=== PATIENT | female | born 1930 ===

== ENCOUNTER 2017-03-02 11:14 | Emergency (ER) | payer MEDICARE ==
[2017-03-02 11:16] VITALS: BMI 29.0
[2017-03-02 11:21] VITALS: RESP 20; O2SAT 95
--- NOTE | 2017-03-02 11:22 | C.PDOC ---
History Of Present Illness <Venkat Levy DO - Last Filed: 03/02/17 14:18> <Sung Carey - Last Filed: 03/02/17 18:39> 87 y/o female presents to the ED with complains of lower back pain and left knee pain since yesterday. Pt states she tripped and fell landing on her knee yesterday prior to pain onset. She denies head injury, LOC or any other complaints. (Venkat Levy DO) History Per: Patient History/Exam Limitations: no limitations Onset/Duration Of Symptoms: Hrs Current Symptoms Are (Timing): Still Present Quality Of Discomfort: "Pain" Severity: Moderate Previous Symptoms: None Recent travel outside of the [place]: No <Venkat Levy DO - Last Filed: 03/02/17 14:18> <AurelioSung Maryam - Last Filed: 03/02/17 18:39> Time Seen by Provider: 03/02/17 11:21 Chief Complaint (Nursing): Back Pain Past Medical History Reviewed: Historical Data, Nursing Documentation, Vital Signs Family History: States: Unknown Family Hx <Venkat Levy DO - Last Filed: 03/02/17 14:18> - Medical History PMH: Arthritis, Bronchitis, Diabetes, Diverticulitis, Gastritis, Hypercholesterolemia, Hyperlipidemia, Hypothyroidism, Osteoporosis, Pneumonia Denies: Asthma, Atrial Fibrillation, CHF, COPD, HIV, HTN, Chronic Kidney Disease, Seizures Surgical History: Cholecystectomy Denies: CABG, Pacemaker Family History: States: Unknown Family Hx, Diabetes, Hypertension Denies: CAD - Social History Hx Tobacco Use: Yes (OCC) Hx Alcohol Use: No Hx Substance Use: No - Immunization History Hx Tetanus Toxoid Vaccination: Yes Hx Influenza Vaccination: Yes Hx Pneumococcal Vaccination: Yes (2 years ago) <AurelioSung Maryam - Last Filed: 03/02/17 18:39> Vital Signs: Last Vital Signs Temp 97.6 F 03/02/17 12:51 Pulse 71 03/02/17 12:51 Resp 20 03/02/17 12:51 BP 192/75 H 03/02/17 12:51 Pulse Ox 95 03/02/17 12:51 - [facility] Procedures CLOSED ENDOSCOPIC BIOPSY OF LARGE INTESTINE (07/26/15) ESOPHAGOGASTRODUODENOSCOPY [EGD] W/CLOSED BIOPSY (07/26/15) Review Of Systems Except As Marked, All Systems Reviewed And Found Negative. Cardiovascular: Negative for: Chest Pain Respiratory: Negative for: Shortness of Breath Gastrointestinal: Negative for: Abdominal Pain Musculoskeletal: Positive for: Back Pain, Other (left knee pain) Neurological: Negative for: Weakness, Numbness <Venkat Levy DO - Last Filed: 03/02/17 14:18> Physical Exam - Physical Exam Appears: Non-toxic, No Acute Distress Skin: Warm, Dry Head: Atraumatic, Normacephalic Chest: Symmetrical Cardiovascular: Rhythm Regular Respiratory: Normal Breath Sounds, No Rales, No Rhonchi, No Wheezing Gastrointestinal/Abdominal: Soft, No Tenderness Back: No Vertebral Tenderness, Paraspinal Tenderness (diffuse lumbosacral tenderness) Extremity: Normal ROM, Tenderness (lateral aspect left knee), Capillary Refill ( <2 seconds), No Deformity, No Swelling Neurological/Psych: Oriented x3, Normal Motor, Normal Sensation <Venkat Levy DO - Last Filed: 03/02/17 14:18> ED Course And Treatment O2 Sat by Pulse Oximetry: 95 <Sung Carey - Last Filed: 03/02/17 18:39> Medical Decision Making <Venkat Levy DO - Last Filed: 03/02/17 14:18> <Sung Carey - Last Filed: 03/02/17 18:39> Medical Decision Making: Plan: XR left knee and lumbar spine (Venkat Levy DO) Disposition - Disposition Disposition Time: 12:40 <Venkat Levy DO - Last Filed: 03/02/17 14:18> <Sung Carey - Last Filed: 03/02/17 18:39> - Disposition Referrals: [facility], [Non-Staff] - Disposition: HOME/ ROUTINE Condition: GOOD Additional Instructions: Thank you for letting us take care of you today. Your provider was Dr. Levy. You were treated for knee and back pain. The emergency medical care you received today was directed at your acute symptoms. If you were prescribed any medication, please fill it and take as directed. It may take several days for your symptoms to resolve. Return to the Emergency Department if your symptoms worsen, do not improve, or if you have any other problems. Please contact your doctor or call one of the physicians/clinics you have been referred to that are listed on the Patient Visit Information form that is included in your discharge packet. Bring any paperwork you were given at discharge with you along with any medications you are taking to your follow up visit. Our treatment cannot replace ongoing medical care by a primary care provider (PCP) outside of the emergency department. Thank you for allowing the [facility] team to be part of your care today. Follow up with your doctor in 3-4 days for re-evaluation. Prescriptions: Cyclobenzaprine [Cyclobenzaprine HCl] 5 mg PO Q8 PRN #15 tab PRN Reason: Muscle Spasm Instructions: Acute Low Back Pain (ED), Knee Pain (ED) Forms: Gen Discharge Inst Vincentian Print Language: JAPANESE - Clinical Impression Clinical Impression: Low back pain, Knee pain - Scribe Statement The provider has reviewed the documentation as recorded by the Scribe <Venkat Levy DO - Last Filed: 03/02/17 14:18> <Sung Carey - Last Filed: 03/02/17 18:39> - Scribe Statement Tesfaye Jimenez (Venkat Levy DO) Provider Attestation: All medical record entries made by the Scribe were at my direction and personally dictated by me. I have reviewed the chart and agree that the record accurately reflects my personal performance of the history, physical exam, medical decision making, and the department course for this patient. I have also personally directed, reviewed, and agree with the discharge instructions and disposition. (Venkat Levy DO) Addendum <Sung Carey - Last Filed: 03/02/17 18:39> Addendum: 03/02/17 18:37 I did not see or treat this pt Due to [facility] design I am unable to remove my name from this charg and information documented under my name should be disregarded (Sung Carey)
--- NOTE | 2017-03-02 12:32 | RAD ---
PROCEDURE: Left Knee Radiographs. HISTORY: Pain. COMPARISON: None. FINDINGS: BONES: No evidence of acute fracture. JOINTS: Moderate osteoarthritic changes. JOINT EFFUSION: None. OTHER FINDINGS: None. IMPRESSION: No evidence of acute fracture or dislocation. Moderate osteoarthritic changes.
--- NOTE | 2017-03-02 12:36 | RAD ---
PROCEDURE: Radiographs of the Lumbar Spine. HISTORY: r/o fx COMPARISON: No prior. FINDINGS: BONES: No definite evidence of acute fracture. DISC SPACES: Moderate to severe degenerative disc changes. Move mild grade 1 anterior spondylolisthesis of L4 relative to L5. OTHER FINDINGS: None. IMPRESSION: Diffuse osteopenia. Moderate to severe degenerative changes. No definite evidence of acute fracture. Grade 1 anterior spondylolisthesis of L4 relative to L5.
[2017-03-02 12:52] VITALS: BP 192/75; PULSE 71; TEMP 97.6
== END 2017-03-02 12:52 | disposition home or self-care (01) ==
LOC: C.ER 11:14
DX: M54.5 Low back pain (principal); M25.562 Pain in left knee

== ENCOUNTER 2018-07-03 11:44 | Emergency (ER) | payer MEDICARE ==
[2018-07-03 11:52] VITALS: BMI 31.2
[2018-07-03 14:10] LABS: SQUAMOUS EPITHIAL 5 /hpf (0-5); URINE BACTERIA RARE (<OCC); URINE BILIRUBIN 1+ (NEGATIVE); URINE BLOOD NEGATIVE (NEGATIVE); URINE CLARITY Hazy (Clear); URINE COLOR Amber (YELLOW); URINE GLUCOSE (UA) NORMAL (Normal); URINE HYALINE CAST >20 /lpf (0-2); URINE LEUKOCYTE ESTERASE 2+ Leu/uL (Negative); URINE PROTEIN 1+ mg/dL (NEGATIVE)
--- NOTE | 2018-07-03 14:33 | C.PDOC ---
History Of Present Illness 88yo female, comes to ER stating she is feeling woozy/groggy after taking Zanaflex. Patient states the medication is not her's and was prescribed to her daughter. She reports taking the medication as she has bilateral flank pain for weeks. She denies taking any other medications but states she has been using home remedies with no relief. Patient states the pain is now resolved. At present, she denies any headache, fever, chills, nausea, vomiting or abdominal pain. Time Seen by Provider: 07/03/18 12:34 Chief Complaint (Nursing): Weakness/Neurological Deficit History Per: Patient History/Exam Limitations: no limitations Onset/Duration Of Symptoms: Persistent Current Symptoms Are (Timing): Still Present Additional History Per: Patient Past Medical History Reviewed: Historical Data, Nursing Documentation, Vital Signs Vital Signs: Last Vital Signs Temp 98.8 F 07/03/18 14:47 Pulse 63 07/03/18 14:47 Resp 16 07/03/18 14:47 BP 126/61 07/03/18 14:47 Pulse Ox 95 07/03/18 14:47 - Medical History PMH: Arthritis, Bronchitis, Diabetes, Diverticulitis, Gastritis, Hypercholesterolemia, Hyperlipidemia, Hypothyroidism, Osteoporosis, Pneumonia Denies: Asthma, Atrial Fibrillation, CHF, COPD, HIV, HTN, Chronic Kidney Disease, Seizures Surgical History: Cholecystectomy Denies: CABG, Pacemaker - [facility] Procedures CLOSED ENDOSCOPIC BIOPSY OF LARGE INTESTINE (07/26/15) ESOPHAGOGASTRODUODENOSCOPY [EGD] W/CLOSED BIOPSY (07/26/15) Family History: States: Unknown Family Hx, Diabetes, Hypertension Denies: CAD - Social History Hx Tobacco Use: Yes (OCC) Hx Alcohol Use: No Hx Substance Use: No - Immunization History Hx Tetanus Toxoid Vaccination: No Hx Influenza Vaccination: No Hx Pneumococcal Vaccination: No Review Of Systems Except As Marked, All Systems Reviewed And Found Negative. Constitutional: Negative for: Fever, Chills Cardiovascular: Negative for: Chest Pain Respiratory: Negative for: Shortness of Breath Gastrointestinal: Positive for: Other (bilateral flank pain). Negative for: Nausea, Vomiting, Abdominal Pain Neurological: Negative for: Weakness, Numbness Physical Exam - Physical Exam Appears: Non-toxic, No Acute Distress, Other (obese) Skin: Normal Color, Warm, Dry Head: Atraumatic, Normacephalic Eye(s): bilateral: Normal Inspection, PERRL, EOMI Oral Mucosa: Moist Neck: Normal ROM, Supple Chest: Symmetrical, No Tenderness Cardiovascular: Rhythm Regular Respiratory: Normal Breath Sounds Gastrointestinal/Abdominal: Soft, No Tenderness, No Mass, No Guarding, No Rebound, Other (obese) Back: Normal Inspection Extremity: Normal ROM, No Deformity Neurological/Psych: Oriented x3, Normal Speech, Normal Cognition Gait: Steady ED Course And Treatment O2 Sat by Pulse Oximetry: 98 (RA) Pulse Ox Interpretation: Normal Medical Decision Making Medical Decision Making: Plan: -- Urinalysis 1431 UA reviewed, no concern for UTI or kidney stones. On reassessment, patient is resting comfortably, and is in no acute distress. She states her grogginess has resolved. Patient was instructed to follow up with physician/clinic in 1-2 days for further evaluation. Disposition Counseled Patient/Family Regarding: Studies Performed, Diagnosis, Need For Followup - Disposition Disposition: HOME/ ROUTINE Disposition Time: 14:31 Condition: STABLE Forms: Gen Discharge Inst Maori, [facility] (Maori) - Clinical Impression Clinical Impression: Dizziness - Scribe Statement The provider has reviewed the documentation as recorded by the James Mena Provider Attestation: All medical record entries made by the James were at my direction and personally dictated by me. I have reviewed the chart and agree that the record accurately reflects my personal performance of the history, physical exam, medical decision making, and the department course for this patient. I have also personally directed, reviewed, and agree with the discharge instructions and disposition.
[2018-07-03 14:49] VITALS: BP 126/61; PULSE 63; RESP 16; TEMP 98.8
[2018-07-03 15:12] VITALS: O2SAT 98
--- NOTE | 2018-07-04 20:53 | CARD ---
APPROVED REPORT Date of service: 07/03/2018 EKG Measurement Heart [id number] <Conclusion> Normal sinus rhythm with sinus arrhythmia Minimal voltage criteria for LVH, may be normal variant T wave abnormality, consider lateral ischemia Abnormal ECG
== END 2018-07-03 14:49 | disposition home or self-care (01) ==
LOC: C.ER 11:44
DX: R42 Dizziness and giddiness (principal)

== ENCOUNTER 2018-07-10 17:41 | Observation (INO) | payer MEDICARE ==
[2018-07-10 17:41] VITALS: BMI 31.2
--- NOTE | 2018-07-10 18:16 | C.PDOC ---
History Of Present Illness 88 y/o female presents to ED with c/o sob and chest tightness associated with cough since 12pm today. Patient reports x2 episode of vomiting and currently denies abdominal pain, fever, chills or any other complaints at this time. Time Seen by Provider: 07/10/18 18:02 Chief Complaint (Nursing): Shortness Of Breath History Per: Patient History/Exam Limitations: no limitations Onset/Duration Of Symptoms: Hrs Current Symptoms Are (Timing): Still Present Past Medical History Reviewed: Historical Data, Nursing Documentation, Vital Signs Vital Signs: Last Vital Signs Temp 98.7 F 07/10/18 17:50 Pulse 64 07/10/18 17:50 Resp 22 07/10/18 17:50 BP 146/65 07/10/18 17:50 Pulse Ox 94 L 07/10/18 18:38 - Medical History PMH: Arthritis, Bronchitis, Diabetes, Diverticulitis, Gastritis, Hypercholesterolemia, Hyperlipidemia, Hypothyroidism, Osteoporosis, Pneumonia Surgical History: Cholecystectomy - [facility] Procedures CLOSED ENDOSCOPIC BIOPSY OF LARGE INTESTINE (07/26/15) ESOPHAGOGASTRODUODENOSCOPY [EGD] W/CLOSED BIOPSY (07/26/15) Family History: States: Unknown Family Hx, Diabetes, Hypertension - Social History Hx Tobacco Use: Yes (OCC) Hx Alcohol Use: No Hx Substance Use: No - Immunization History Hx Tetanus Toxoid Vaccination: No Hx Influenza Vaccination: No Hx Pneumococcal Vaccination: No Review Of Systems Constitutional: Negative for: Fever, Chills Cardiovascular: Positive for: Chest Pain Respiratory: Positive for: Cough, Shortness of Breath Gastrointestinal: Positive for: Vomiting Skin: Negative for: Rash Physical Exam - Physical Exam Appears: Non-toxic, No Acute Distress Skin: Warm, Dry, No Rash Head: Atraumatic, Normacephalic Eye(s): bilateral: Normal Inspection Oral Mucosa: Moist Throat: Normal, No Erythema, No Exudate Neck: Normal ROM, Supple Cardiovascular: Rhythm Regular Respiratory: Normal Breath Sounds, No Rales, No Rhonchi, No Wheezing Gastrointestinal/Abdominal: Soft, No Tenderness, No Guarding, No Rebound Extremity: Normal ROM, No Pedal Edema, Capillary Refill (<2 seconds) Neurological/Psych: Oriented x3, Normal Speech, Normal Cognition ED Course And Treatment O2 Sat by Pulse Oximetry: 94 (RA) Medical Decision Making Medical Decision Making: Assessment: Chest pain case s/o to Dr. Ferreira at 1900 pending labs, reevaluation and disposition Disposition - Disposition Disposition Time: 19:00 Condition: FAIR Forms: [facility] (Bolivian) - Clinical Impression Clinical Impression: Chest pain - Scribe Statement The provider has reviewed the documentation as recorded by the Scribe Nemesio Mathews All medical record entries made by the Scribe were at my direction and personally dictated by me. I have reviewed the chart and agree that the record accurately reflects my personal performance of the history, physical exam, medical decision making, and the department course for this patient. I have also personally directed, reviewed, and agree with the discharge instructions and disposition. Physician Patient Turnover Patient Signed Over To: Odilia Ferreira Handoff Comments: pending labs, ekg, cxr, disposition
--- NOTE | 2018-07-10 18:58 | RAD ---
Date of service: 07/10/2018 PROCEDURE: CHEST RADIOGRAPH, 1 VIEW HISTORY: SOB COMPARISON: 11/29/2016 FINDINGS: LUNGS: Clear. PLEURA: No pneumothorax or pleural fluid seen. CARDIOVASCULAR: Normal. OSSEOUS STRUCTURES: No significant abnormalities. VISUALIZED UPPER ABDOMEN: Normal. OTHER FINDINGS: None. IMPRESSION: No active disease.
[2018-07-10 19:31] LABS: BASO % 0.7 % (0.0-2.0); EOS # 0.2 K/uL (0.0-0.7); EOS % 3.5 % (0.0-4.0); HEMOGLOBIN 12.3 g/dL (11.0-16.0); LYMPH % 29.8 % (20.0-40.0); MEAN CELL VOLUME 92.5 fL (81.0-99.0); MEAN CORPUSCULAR HGB CONC 34.6 g/dL (33.0-37.0); MEAN PLATELET VOLUME 7.3 fL (7.2-11.7); MONO # 0.8 K/uL (0.0-0.8); NEUT # 3.7 K/uL (1.8-7.0); NRBC % 0.1 % (0.0-2.0); RBC 3.84 Mil/uL (3.80-5.20); RED CELL DISTRIBUTION WIDTH 13.5 % (11.5-14.5); WHITE BLOOD COUNT 6.8 K/uL (4.8-10.8)
[2018-07-10 19:44] LABS: ALB/GLOB RATIO 1.5 (1.0-2.1); ALBUMIN 4.3 g/dL (3.5-5.0); ALT/SGPT 33 U/L (9-52); AST/SGOT 17 U/L (14-36); BLOOD UREA NITROGEN 19 mg/dL (7-17); CALCIUM 9.4 mg/dl (8.6-10.4); GFR AFRICAN-AMERICAN > 60; GFR NON-AFRICAN AMERICAN 59; LIPASE 102 U/L (23-300)
[2018-07-10 19:55] LABS: B-TYPE NATRIURETIC PEPTIDE 232 pg/mL (0-900)
[2018-07-10 20:10] LABS: URINE BACTERIA RARE (<OCC); URINE BILIRUBIN NEGATIVE (NEGATIVE); URINE BLOOD NEGATIVE (NEGATIVE); URINE CLARITY Clear (Clear); URINE COLOR Straw (YELLOW); URINE GLUCOSE (UA) NORMAL (Normal); URINE LEUKOCYTE ESTERASE NEG Leu/uL (Negative); URINE PROTEIN NEGATIVE (NEGATIVE); URINE UROBILINOGEN NORMAL mg/dL (0.2-1.0)
--- NOTE | 2018-07-11 01:49 | CP.PCM.HP ---
<Lisa MontesNick - Last Filed: 07/11/18 04:40> History of Present Illness - History of Present Illness History of Present Illness: HPI: Patient is an 88 year old female with a history of HTN, DM, Hypothyroidism , who presents to the ED with complaints of epigastric pain. Patient states she was having her breakfast (coffee and bread) this morning, when shortly after, she developed epigastric pain described as a burning sensation. She also noted a "bad taste"and vomited up "green liquid". Patient reports she has not had an episode like this in the past, but has noted similar milder symptoms at nighttime. Patient's daughter was at bedside and contributed to the history. Per the daughter, the patient called her today and told her she couldn't breath. The patient has had bronchitis and used an inhaler in the past. Patient denies having shortness of breath at this time, but admits to having a dry cough that started today. Per the daughter, the patient has had abdominal pain and back pain for two weeks. She was given tramadol by her PMD, but stopped taking it today as she feels like she might have an allergy (itchy skin). The patient currently denies chest pain, palpitations, dyspnea, nausea, vomiting, fevers, headaches, dysuria, hematuria, constipation, diarrhea, and dizziness. PMD: Dr. Chung PMHx: HTN, DM, hypothyroidism SurgHx: Cholecystectomy, hysterectomy, bilateral cataract surgery FamHx: Grandmother- Gallbladder cancer SocHx: social tobacco use; denies alcohol and drug use; daughter- Thais, Allergies: per the patient and daughter: "allergic to a pain medication" but does not know the name; possible allergy to tramadol? Medications: Patient and daughter do not know the names- brought a 7 day pill organizer with multiple medications. Patient's pharmacy: [facility] Present on Admission - Present on Admission Any Indicators Present on Admission: No Review of Systems - Constitutional Constitutional: absent: Chills, Fever, Headache, Weight Loss, Weakness - EENT Eyes: absent: Change in Vision Ears: absent: Dizziness - Cardiovascular Cardiovascular: Dyspnea. absent: Chest Pain, Irregular Heart Rhythm, Leg Edema , Lightheadedness, Palpitations, Rapid Heart Rate - Respiratory Respiratory: Cough. absent: Dyspnea, Hemoptysis - Gastrointestinal Gastrointestinal: Abdominal Pain (epigastric), Vomiting. absent: Constipation, Diarrhea, Hematemesis, Hematochezia, Loose Stools - Genitourinary Genitourinary: absent: Dysuria, Hematuria - Integumentary Integumentary: absent: Rash, Swelling - Neurological Neurological: absent: Dizziness, Headaches - Endocrine Endocrine: absent: Palpitations Past Patient History - Infectious Disease Hx of Infectious Diseases: None - Tetanus Immunizations Tetanus Immunization: Unknown - Past Medical History & Family History Past Medical History?: Yes - Past Social History Smoking Status: Heavy Smoker > 10 Cigarettes Daily - CARDIAC Hx Hypercholesterolemia: Yes - PULMONARY Hx Bronchitis: Yes Hx Pneumonia: Yes - NEUROLOGICAL Hx Seizures: No - HEENT Hx HEENT Problems: No - RENAL Hx Chronic Kidney Disease: No - ENDOCRINE/METABOLIC Hx Hypothyroidism: Yes - HEMATOLOGICAL/ONCOLOGICAL Hx Human Immunodeficiency Virus (HIV): No - INTEGUMENTARY Hx Dermatological Problems: No - MUSCULOSKELETAL/RHEUMATOLOGICAL Hx Arthritis: Yes Hx Osteoporosis: Yes - GASTROINTESTINAL Hx Diverticulitis: Yes Hx Gastritis: Yes - GENITOURINARY/GYNECOLOGICAL Hx Genitourinary Disorders: No - PSYCHIATRIC Hx Substance Use: No - SURGICAL HISTORY Hx Cholecystectomy: Yes - ANESTHESIA Hx Anesthesia: Yes Hx Anesthesia Reactions: No Hx Malignant Hyperthermia: No Meds Allergies/Adverse Reactions: Allergies Allergy/AdvReac Type Severity Reaction Status Date / Time alendronate sodium Allergy RASH Verified 07/10/18 17:49 [From Fosamax] sulindac Allergy RASH Verified 07/10/18 17:49 Physical Exam - Constitutional Appears: No Acute Distress - Head Exam Head Exam: ATRAUMATIC, NORMAL INSPECTION - Eye Exam Eye Exam: EOMI, Normal appearance, PERRL - ENT Exam ENT Exam: Mucous Membranes Moist - Respiratory Exam Respiratory Exam: Clear to Auscultation Bilateral, Wheezes (mild, diffuse), NORMAL BREATHING PATTERN. absent: Rales, Rhonchi, Respiratory Distress - Cardiovascular Exam Cardiovascular Exam: REGULAR RHYTHM, +S1, +S2 - GI/Abdominal Exam GI & Abdominal Exam: Normal Bowel Sounds, Soft, Tenderness (RUQ, eipgastric). absent: Distended, Firm, Guarding, Mass - Extremities Exam Extremities exam: Positive for: normal inspection, pedal pulses present. Negative for: pedal edema, tenderness - Back Exam Back exam: paraspinal tenderness (b/l lower lumbar). absent: CVA tenderness (L) , CVA tenderness (R) - Neurological Exam Neurological exam: Alert, CN II-XII Intact, Oriented x3 - Psychiatric Exam Psychiatric exam: Normal Affect, Normal Mood - Skin Skin Exam: Dry, Intact, Normal Color, Warm Results - Vital Signs Recent Vital Signs: Last Vital Signs Temp 97.8 F 07/11/18 01:32 Pulse 74 07/11/18 01:32 Resp 18 07/11/18 01:32 BP 140/59 L 07/11/18 01:32 Pulse Ox 95 07/11/18 01:32 - Labs Result Diagrams: 07/10/18 19:15 07/10/18 19:15 Labs: Laboratory Results - last 24 hr 07/10/18 07/10/18 07/10/18 19:15 19:15 20:01 WBC 6.8 RBC 3.84 Hgb 12.3 Hct 35.5 MCV 92.5 MCH 32.0 H MCHC 34.6 RDW 13.5 Plt Count 265 MPV 7.3 Neut % (Auto) 54.0 Lymph % (Auto) 29.8 [place] % (Auto) 12.0 H Eos % (Auto) 3.5 Baso % (Auto) 0.7 Neut # (Auto) 3.7 Lymph # (Auto) 2.0 [place] # (Auto) 0.8 Eos # (Auto) 0.2 Baso # (Auto) 0.0 Sodium 139 Potassium 4.3 Chloride 102 Carbon Dioxide 27 Anion Gap 15 BUN 19 H Creatinine 0.9 Est GFR ( Amer) > 60 Est GFR (Non-Af Amer) 59 Random Glucose 133 H Calcium 9.4 Magnesium 2.0 Total Bilirubin 0.4 AST 17 ALT 33 Alkaline Phosphatase 92 Troponin I < 0.0120 NT-Pro-B Natriuret Pep 232 Total Protein 7.2 Albumin 4.3 Globulin 2.9 Albumin/Globulin Ratio 1.5 Lipase 102 Urine Color Straw Urine Clarity Clear Urine pH 5.0 Ur Specific [place] 1.005 Urine Protein Negative Urine Glucose (UA) Normal Urine Ketones Negative Urine Blood Negative Urine Nitrate Negative Urine Bilirubin Negative Urine Urobilinogen Normal Ur Leukocyte Esterase Neg Urine WBC (Auto) 1 Urine Bacteria Rare Assessment & Plan - Assessment and Plan (Free Text) Assessment: Abdominal Pain - Epigastric pain likely secondary to GERD - Protonix 40mg PO daily - RUQ pain--> ordered Abdomen/Pelvis CT, Abdominal US - Chest/Abdomen/Pelvis CT: small esophageal hiatal hernia; scattered mediastinal lymph nodes; diverticulosis w/o evidence of diverticulitis - Abdominal US: f/u Cough - CXR: no active disease - Chest CT: bilateral atelectasis - Duonebs Q6h - Pulmicort 0.5mg Inh Q12h - Doxycycline 100mg IV Q12h - O2 via NC Hypertension - Continue home medication: Nifedipine 60mg PO daily DM - Accuchecks - Hypoglycemic protocol - ISS Hypothyroidism - Continue home medication: Levothyroxine 75mcg PO daily HLD - Continue home medication: Crestor 5mg PO HS Prophylaxis - DVT: Heparin 5000u SC Q12h, SCDs - GI: Protonix 40mg PO daily - Heart healthy, 2g Na, low carb diet - PT/OT <Olegario Ritchie P - Last Filed: 07/11/18 06:38> Results - Vital Signs Recent Vital Signs: Last Vital Signs Temp 97.8 F 07/11/18 03:03 Pulse 59 L 07/11/18 03:30 Resp 22 07/11/18 03:03 BP 140/59 L 07/11/18 03:03 Pulse Ox 96 07/11/18 04:00 - Labs Result Diagrams: 07/10/18 19:15 07/10/18 19:15 Labs: Laboratory Results - last 24 hr 07/10/18 07/10/18 07/10/18 19:15 19:15 20:01 WBC 6.8 RBC 3.84 Hgb 12.3 Hct 35.5 MCV 92.5 MCH 32.0 H MCHC 34.6 RDW 13.5 Plt Count 265 MPV 7.3 Neut % (Auto) 54.0 Lymph % (Auto) 29.8 [place] % (Auto) 12.0 H Eos % (Auto) 3.5 Baso % (Auto) 0.7 Neut # (Auto) 3.7 Lymph # (Auto) 2.0 [place] # (Auto) 0.8 Eos # (Auto) 0.2 Baso # (Auto) 0.0 Sodium 139 Potassium 4.3 Chloride 102 Carbon Dioxide 27 Anion Gap 15 BUN 19 H Creatinine 0.9 Est GFR ( Amer) > 60 Est GFR (Non-Af Amer) 59 Random Glucose 133 H Calcium 9.4 Magnesium 2.0 Total Bilirubin 0.4 AST 17 ALT 33 Alkaline Phosphatase 92 Troponin I < 0.0120 NT-Pro-B Natriuret Pep 232 Total Protein 7.2 Albumin 4.3 Globulin 2.9 Albumin/Globulin Ratio 1.5 Lipase 102 Urine Color Straw Urine Clarity Clear Urine pH 5.0 Ur Specific [place] 1.005 Urine Protein Negative Urine Glucose (UA) Normal Urine Ketones Negative Urine Blood Negative Urine Nitrate Negative Urine Bilirubin Negative Urine Urobilinogen Normal Ur Leukocyte Esterase Neg Urine WBC (Auto) 1 Urine Bacteria Rare Attending/Attestation - Attestation I have personally seen and examined this patient.: Yes I have fully participated in the care of the patient.: Yes I have reviewed all pertinent clinical information: Yes Notes (Text): 07/11/18 06:34 Assessment * Presentation with c/o cough, sob, post vomiting * Reactive airway disease suspected from gerd/aspiration * RUQ abd tenderness, patient is s/p cholecystectomy, lft's fine DD of gastritis , cbd stones * DM on oha, h/o htn Plan * USG liver/biliary * PRN neb, inhaled pulmicort * Home meds * Gi/DVT prophylaxis * See orders for detail.
[2018-07-11] MEDS: Albuterol-Ipratrop 3 mg / 0.5 (3 ml) UD INH SCH ×3 (02:15→13:13)
[2018-07-11] MEDS ORDERED: Levothyroxine 75 MCG TAB PO SCH (06:30)
--- NOTE | 2018-07-11 07:51 | CP.PCM.PN ---
Subjective - Date & Time of Evaluation Date of Evaluation: 07/11/18 Time of Evaluation: 07:51 - Subjective Subjective: Resident Progress Note for Hospitalist Service Patient examined at bedside. Objective - Vital Signs/Intake and Output Vital Signs (last 24 hours): Temp Pulse Resp BP Pulse Ox 97.8 F 59 L 22 140/59 L 96 07/11/18 03:03 07/11/18 03:30 07/11/18 03:03 07/11/18 03:03 07/11/18 04:00 - Medications Medications: Current Medications Albuterol/Ipratropium (Duoneb 3 Mg/0.5 Mg (3 Ml) Ud) 3 ml INH RQ6 [facility] Last Admin: 07/11/18 07:30 Dose: Not Given Allopurinol (Zyloprim) 300 mg PO DAILY [facility] Aspirin (Ecotrin) 81 mg PO DAILY [facility] Budesonide (Pulmicort Respules) 0.5 mg INH RQ12 [facility] Last Admin: 07/11/18 07:30 Dose: Not Given Heparin Sodium (Porcine) (Heparin) 5,000 units SC Q12 [facility] Home Med (Biotin [Biotin]) 1 cap PO DAILY [facility] Doxycycline Hyclate 100 mg/ (Sodium Chloride) 100 mls @ 100 mls/hr IVPB Q12H [facility] PRN Reason: Protocol Last Admin: 07/11/18 00:51 Dose: 100 mls/hr Insulin Human Regular (Novolin R) 0 unit SC ACHS [facility] PRN Reason: Protocol Levothyroxine Sodium (Synthroid) 75 mcg PO DAILY@0630 [facility] Last Admin: 07/11/18 07:00 Dose: 75 mcg Nifedipine (Procardia Xl) 60 mg PO DAILY [facility] Pantoprazole Sodium (Protonix Ec Tab) 40 mg PO DAILY [facility] Rosuvastatin Calcium (Crestor) 5 mg PO HS [facility] - Labs Labs: 07/10/18 19:15 07/10/18 19:15
[2018-07-11] MEDS ORDERED: Budesonide 0.5 mg/2 ml Inhal Susp UD INH SCH (08:00)
[2018-07-11 08:08] LABS: BASO % 0.7 % (0.0-2.0); EOS # 0.2 K/uL (0.0-0.7); EOS % 4.1 % (0.0-4.0); HEMOGLOBIN 12.4 g/dL (11.0-16.0); LYMPH # 1.4 K/uL (1.0-4.3); LYMPH % 23.6 % (20.0-40.0); MEAN CELL VOLUME 92.2 fL (81.0-99.0); MEAN CORPUSCULAR HEMOGLOBIN 31.5 pg (27.0-31.0); MEAN CORPUSCULAR HGB CONC 34.2 g/dL (33.0-37.0); MONO # 0.7 K/uL (0.0-0.8); MONO % 12.2 % (0.0-10.0); NEUT # 3.6 K/uL (1.8-7.0); NEUT % 59.4 % (50.0-75.0); RBC 3.92 Mil/uL (3.80-5.20); RED CELL DISTRIBUTION WIDTH 13.4 % (11.5-14.5); WHITE BLOOD COUNT 6.1 K/uL (4.8-10.8)
[2018-07-11 08:22] LABS: ALB/GLOB RATIO 1.5 (1.0-2.1); ALBUMIN 3.8 g/dL (3.5-5.0); ALT/SGPT 27 U/L (9-52); AST/SGOT 14 U/L (14-36); BLOOD UREA NITROGEN 16 mg/dL (7-17); CALCIUM 8.8 mg/dl (8.6-10.4); GFR AFRICAN-AMERICAN > 60; GFR NON-AFRICAN AMERICAN > 60
[2018-07-11] MEDS: (Novolin R) Insulin Human Regular 100 units/ml vial SC SCH ×3 (08:23→16:30)
--- NOTE | 2018-07-11 09:50 | US ---
Abdominal ultrasound History: Right upper quadrant abdominal pain. Comparison: None available. Technique: Real-time sonography was performed through the abdomen. Findings: Liver: 17.9 centimeters in length. Normal echogenicity. Heterogeneous to hypoechoic cystic lesion in the right lobe of the liver measuring 1.2 x 0.9 x 1.2 centimeters. Correlation with multiphasic CT or MR may be helpful for further evaluation if clinically indicated. Gallbladder: Prior cholecystectomy. Common bile duct measures 8 millimeters, within normal limits. Limited visualization of the pancreas. Spleen measures 8.5 centimeters in length, within normal limits. Visualized aorta and IVC are preserved. Small right pleural effusion noted. Right kidney: 9.6 x 4.4 x 3.9 centimeters. Increased echogenicity of the renal parenchymal cortex suggestive for medical renal disease. No calculi or hydronephrosis. Left kidney: 9.2 x 4.5 x 4.6 centimeters. Increased echogenicity of the renal parenchymal cortex suggestive for medical renal disease. No calculi or hydronephrosis. Impression: 1. Increased echogenicity of the bilateral renal parenchymal cortices suggestive for medical renal disease. Clinical correlation. 2. Heterogeneous 1.2 centimeter cystic lesion in the right lobe of the liver. Correlation with multiphasic CT or MR may be helpful for further evaluation if clinically indicated. 3. Small right pleural effusion. 4. Prior cholecystectomy. 5. Pancreas not well visualized.
[2018-07-11] MEDS ORDERED: Pantoprazole 40 mg EC Tab PO SCH (10:00)
[2018-07-11] MEDS ORDERED: NIFEdipine 60 mg ER Tab PO SCH (10:00)
[2018-07-11] MEDS ORDERED: BIOTIN PO SCH (10:00)
--- NOTE | 2018-07-11 10:49 | CT ---
Date of service: 07/10/2018 PROCEDURE: CT Chest, Abdomen and Pelvis without intravenous contrast HISTORY: Right upper quadrant tenderness right upper quadrant tenderness with cough and shortness breath. COMPARISON: Comparison made with CT scan abdomen pelvis dated 07/26/2015. TECHNIQUE: Radiation dose: Total exam DLP = 650.67 mGy-cm. This CT exam was performed using one or more of the following dose reduction techniques: Automated exposure control, adjustment of the mA and/or kV according to patient size, and/or use of iterative reconstruction technique. FINDINGS: CT CHEST WITHOUT CONTRAST: LUNGS: Minor atelectasis both posterior sulci associated subpleural. There are scattered calcifications particularly notable in the lung bases including the middle lobe region likely representing calcified granulomata. MEDIASTINUM: Heart is mildly enlarged. No significant pericardial effusion. Calcification of the mitral alum this and aortic valve. Small to medium size hiatal hernia. LYMPH NODES: Multiple small medium-sized nonspecific mediastinal lymph nodes are present. Evaluation for hilar adenopathy is somewhat limited due the lack of circulating intravenous contrast material. PLEURA: No evidence of pneumothorax. . There appears to be some minor pleural thickening both posterior sulci. BONES: Mild multilevel degenerative spondylosis of the thoracic and lumbar spine. OTHER FINDINGS: None. CT ABDOMEN AND PELVIS: LIVER: There is a small approximately 15.0 x 1.1 mm low-attenuation lesion anterior aspect left lobe liver that exhibits Hounsfield units in the mid single digits consistent with cyst. No other hepatic masses or collections are identified. GALLBLADDER AND BILE DUCTS: Cholecystectomy PANCREAS: Pancreas appears slightly atrophic and fatty replaced. No pancreatic masses or collections. SPLEEN: Spleen exhibits normal size and attenuation pattern without mass collection or calcification. ADRENALS: There are no adrenal lesions. KIDNEYS AND URETERS: Kidneys demonstrate relatively symmetric size. No evidence of nephrolithiasis or hydronephrosis. . There is a small 5 7 - 8 mm exophytic lesion posterolateral cortex right kidney too small to characterize. Consider followup renal ultrasound to exclude solid component. VASCULATURE: Unremarkable. No aortic aneurysm. BOWEL: Evaluation of the bowel is limited due to the lack of oral contrast material. The stomach is incompletely distended which presumably accounts for slight thick-walled appearance. Visualized loops of small bowel exhibit normal contour and caliber. No evidence acute mechanical small bowel obstruction. Extensive colonic diverticulum involving the entire colon including the ascending and transverse colon. No definitive radiographic evidence of acute diverticulitis. APPENDIX: Normal-appearing appendix. PERITONEUM: Unremarkable. No free fluid. No free air. There is a small hiatal hernia LYMPH NODES: Unremarkable. No enlarged lymph nodes. BLADDER: Urinary bladder is physiologically distended. No evidence of intraluminal urinary bladder calculi. REPRODUCTIVE: Hysterectomy. BONES: Mild multilevel degenerative spondylosis of the lumbar spine. OTHER FINDINGS: None. IMPRESSION: Mild cardiomegaly. Multiple small to medium-sized mediastinal lymph nodes. . Followup the CT scan 3-6 months recommended to assess stability Scattered calcified granulomata both lung brush consistent with prior exposure to granulomatous disease process. Minor atelectasis and what appears represent some minimal pleural thickening both posterior sulci. Extensive diverticulosis without radiographic evidence of acute diverticulitis. Small cyst left lobe liver. There is a small approximately 7-8 mm partially exophytic lesion posterolateral cortex mid pole right kidney too small characterize. Followup ultrasound recommended to exclude solid component. Cholecystectomy. Hysterectomy. Small to medium size hiatal hernia.
[2018-07-11 11:10] VITALS: RESP 16
--- NOTE | 2018-07-11 15:27 | CP.PCM.DIS ---
Provider - Provider Date of Admission: 07/10/18 20:52 Attending physician: Olegario Ritchie MD Primary care physician: Dr. Chung Time Spent in preparation of Discharge (in minutes): 45 Diagnosis - Discharge Diagnosis (1) Epigastric abdominal pain Status: Resolved (2) History of hypertension Status: Chronic (3) History of diabetes mellitus Status: Chronic (4) Low back pain Status: Chronic (5) Hypothyroid Status: Chronic Hospital Course - Lab Results Lab Results: Most Recent Lab Values WBC 6.1 K/uL (4.8-10.8) 07/11/18 08:04 RBC 3.92 Mil/uL (3.80-5.20) 07/11/18 08:04 Hgb 12.4 g/dL (11.0-16.0) 07/11/18 08:04 Hct 36.2 % (34.0-47.0) 07/11/18 08:04 MCV 92.2 fL (81.0-99.0) 07/11/18 08:04 MCH 31.5 pg (27.0-31.0) H 07/11/18 08:04 MCHC 34.2 g/dL (33.0-37.0) 07/11/18 08:04 RDW 13.4 % (11.5-14.5) 07/11/18 08:04 Plt Count 260 K/uL (130-400) 07/11/18 08:04 MPV 7.0 fL (7.2-11.7) L 07/11/18 08:04 Neut % (Auto) 59.4 % (50.0-75.0) 07/11/18 08:04 Lymph % (Auto) 23.6 % (20.0-40.0) 07/11/18 08:04 [place] % (Auto) 12.2 % (0.0-10.0) H 07/11/18 08:04 Eos % (Auto) 4.1 % (0.0-4.0) H 07/11/18 08:04 Baso % (Auto) 0.7 % (0.0-2.0) 07/11/18 08:04 Neut # (Auto) 3.6 K/uL (1.8-7.0) 07/11/18 08:04 Lymph # (Auto) 1.4 K/uL (1.0-4.3) 07/11/18 08:04 [place] # (Auto) 0.7 K/uL (0.0-0.8) 07/11/18 08:04 Eos # (Auto) 0.2 K/uL (0.0-0.7) 07/11/18 08:04 Baso # (Auto) 0.0 K/uL (0.0-0.2) 07/11/18 08:04 Sodium 140 mmol/L (132-148) 07/11/18 08:04 Potassium 4.1 mmol/L (3.6-5.2) 07/11/18 08:04 Chloride 103 mmol/L (98-107) 07/11/18 08:04 Carbon Dioxide 27 mmol/L (22-30) 07/11/18 08:04 Anion Gap 14 (10-20) 07/11/18 08:04 BUN 16 mg/dL (7-17) 07/11/18 08:04 Creatinine 0.8 mg/dL (0.7-1.2) 07/11/18 08:04 Est GFR ( Amer) > 60 07/11/18 08:04 Est GFR (Non-Af Amer) > 60 07/11/18 08:04 POC Glucose (mg/dL) 148 mg/dL (65-110) H 07/11/18 12:02 Random Glucose 114 mg/dL (65-105) H 07/11/18 08:04 Calcium 8.8 mg/dl (8.6-10.4) 07/11/18 08:04 Magnesium 2.0 mg/dL (1.6-2.3) 07/10/18 19:15 Total Bilirubin 0.4 mg/dL (0.2-1.3) 07/11/18 08:04 AST 14 U/L (14-36) 07/11/18 08:04 ALT 27 U/L (9-52) 07/11/18 08:04 Alkaline Phosphatase 89 U/L (38-126) 07/11/18 08:04 Troponin I < 0.0120 ng/mL (0.00-0.120) 07/10/18 19:15 NT-Pro-B Natriuret Pep 232 pg/mL (0-900) 07/10/18 19:15 Total Protein 6.3 g/dL (6.3-8.3) 07/11/18 08:04 Albumin 3.8 g/dL (3.5-5.0) 07/11/18 08:04 Globulin 2.5 gm/dL (2.2-3.9) 07/11/18 08:04 Albumin/Globulin Ratio 1.5 (1.0-2.1) 07/11/18 08:04 Lipase 102 U/L (23-300) 07/10/18 19:15 Urine Color Straw (YELLOW) 07/10/18 20:01 Urine Clarity Clear (Clear) 07/10/18 20:01 Urine pH 5.0 (5.0-8.0) 07/10/18 20:01 Ur Specific [place] 1.005 (1.003-1.030) 07/10/18 20:01 Urine Protein Negative mg/dL (NEGATIVE) 07/10/18 20:01 Urine Glucose (UA) Normal mg/dL (Normal) 07/10/18 20:01 Urine Ketones Negative mg/dL (NEGATIVE) 07/10/18 20:01 Urine Blood Negative (NEGATIVE) 07/10/18 20:01 Urine Nitrate Negative (NEGATIVE) 07/10/18 20:01 Urine Bilirubin Negative (NEGATIVE) 07/10/18 20:01 Urine Urobilinogen Normal mg/dL (0.2-1.0) 07/10/18 20:01 Ur Leukocyte Esterase Neg [place]/uL (Negative) 07/10/18 20:01 Urine WBC (Auto) 1 /hpf (0-5) 07/10/18 20:01 Urine Bacteria Rare (<OCC) 07/10/18 20:01 - Hospital Course Hospital Course: On admission: Patient is an 88 year old female with a history of HTN, DM, Hypothyroidism, who presents to the ED with complaints of epigastric pain. Patient states she was having her breakfast (coffee and bread) this morning, when shortly after, she developed epigastric pain described as a burning sensation. She also noted a "bad taste"and vomited up "green liquid". Patient reports she has not had an episode like this in the past, but has noted similar milder symptoms at nighttime. Patient's daughter was at bedside and contributed to the history. Per the daughter, the patient called her today and told her she couldn't breath. The patient has had bronchitis and used an inhaler in the past. Patient denies having shortness of breath at this time, but admits to having a dry cough that started today. Per the daughter, the patient has had abdominal pain and back pain for two weeks. She was given tramadol by her PMD, but stopped taking it today as she feels like she might have an allergy (itchy skin). The patient currently denies chest pain, palpitations, dyspnea, nausea, vomiting, fevers, headaches, dysuria, hematuria, constipation, diarrhea, and dizziness. During hospital stay: Chest/Abdomen/Pelvis CT was done which showed small esophageal hiatal hernia; scattered mediastinal lymph nodes; diverticulosis w/o evidence of diverticulitis. Abdominal ultrasound shows increased echogenicity of the bilateral renal parenchymal cortices suggestive for medical renal disease. Heterogeneous 1.2 cm cystic lesion in the right lobe of the liver. Small right pleural effusion. Chest x-ray showed no active disease. Patient was treated with protonix 40 mg PO, duonebs q6h, pulmicort 0.5 mg inh q12h, doxycycline 100 mg IV q12h, Please follow up with your primary medical doctor Dr. Chung within 1-2 weeks for followup and referral to a compound finisher for workup and management of GERD and liver cyst. Please do not lie down or recline for at least 1 hour after meals. Please eat your last meal at least 3 hours before bedtime. Please followup for a repeat of CT abdomen and pelvis in three months. Please also followup with an ultrasound of your right kidney for cyst. You may continue your home medications as prescribed. Please do not take tramadol, or any other non steroidal anti inflammatories such as advil, motrin, naproxen. You have been prescribed omeprazole 20 mg. Take once daily for 30 days. Return to ED if symptoms return or worsen. - Date & Time of H&P Date of H&P: 07/11/18 Time of H&P: 01:49 Discharge Exam - Additional Findings Additional findings: - Constitutional Appears: No Acute Distress - Head Exam Head Exam: ATRAUMATIC, NORMAL INSPECTION - Eye Exam Eye Exam: EOMI, Normal appearance - ENT Exam ENT Exam: Mucous Membranes Moist - Respiratory Exam Respiratory Exam: Clear to Auscultation Bilateral, NORMAL BREATHING PATTERN - Cardiovascular Exam Cardiovascular Exam: REGULAR RHYTHM, +S1, +S2 - GI/Abdominal Exam GI & Abdominal Exam: Normal Bowel Sounds, Soft - Extremities Exam Extremities exam: Positive for: normal inspection, pedal pulses present - Back Exam Back exam: Normal inspection - Neurological Exam Neurological exam: Alert, Oriented x3 - Psychiatric Exam Psychiatric exam: Normal Affect, Normal Mood - Skin Skin Exam: Dry, Intact, Normal Color, Warm Discharge Plan - Discharge Medications Prescriptions: Omeprazole 20 mg PO DAILY #30 tablet.dr - Follow Up Plan Condition: STABLE Disposition: HOME/ ROUTINE Instructions: Low Cholesterol, Saturated Fat, and Trans Fat Diet , High Blood Pressure (DC), Cholecystectomy (DC), Chest Pain (DC), Acute Abdominal Pain (DC) , Acute Abdominal Pain (GEN) Additional Instructions: Please follow up with your primary medical doctor Dr. Chung within 1-2 weeks for followup and referral to a compound finisher for workup and management of GERD and liver cyst. Please do not lie down or recline for at least 1 hour after meals. Please eat your last meal at least 3 hours before bedtime. Please followup for a repeat of CT abdomen and pelvis in three months. Please also followup with an ultrasound of your right kidney for cyst. You may continue your home medications as prescribed. Please do not take tramadol, or any other non steroidal anti inflammatories such as advil, motrin, naproxen. You have been prescribed omeprazole 20 mg. Take once daily for 30 days. Return to ED if symptoms return or worsen.
[2018-07-11 17:40] VITALS: BP 145/67; PULSE 64; TEMP 98.4; O2SAT 98
--- NOTE | 2018-07-12 12:54 | CARD ---
APPROVED REPORT Date of service: 07/10/2018 EKG Measurement Heart [id number] <Conclusion> Normal sinus rhythm Possible LVH with repolarization abnormality T wave abnormality, consider lateral ischemia Abnormal ECG
== END 2018-07-11 17:00 | disposition home or self-care (01) ==
LOC: C.ER 17:41 → C.9E 20:52 → C.9I 07-11 01:10
PROVIDERS: ADMIT Internal Medicine; ATTEND Internal Medicine
DX: R07.9 Chest pain, unspecified (principal); R10.13 Epigastric pain; I10 Essential (primary) hypertension; E11.9 Type 2 diabetes mellitus without complications; E03.9 Hypothyroidism, unspecified; M54.5 Low back pain; Z87.891 Personal history of nicotine dependence; Z87.01 Personal history of pneumonia (recurrent)
CPT/HCPCS: 71045; 71250; 74176; 76700; 80053; 81001; 82948; 83690; 83735; 83880; 84484; 85025; 87070; 87081; 93005; 96374; 97162; 97530; 99285; C9113; G0378; G8978; G8979; J1644; J2405